=== PATIENT | male | born 1970 | race Caucasian/White ===

== ENCOUNTER 2022-02-01 10:32 | Day surgery (SDC) | payer MEDICARE ==
[2022-02-01] MEDS ORDERED: Marcaine Mpf 0.5% Vial 30 Ml IV ONE (10:33)
[2022-02-01] MEDS: CEFAZOLIN 2 GM-D5W BAG** 2 GM/50 ML ML IV SCH (11:21)
[2022-02-01] MEDS: Lactated Ringers 1,000 ML IV SCH (11:21)
[2022-02-01] MEDS ORDERED: Decadron 4 MG INJ ONE (12:44)
[2022-02-01] MEDS ORDERED: Xylocaine-Mpf 2% 5 Ml Vial ONE (12:44)
[2022-02-01] MEDS ORDERED: Naropin 0.5% 30 ML VIAL ONE (12:44)
[2022-02-01] MEDS ORDERED: SUBLIMAZE 100 MCG/2 ML ONE (12:48)
[2022-02-01] MEDS ORDERED: Versed 2 MG/2 ML Injection ONE (12:48)
[2022-02-01] MEDS ORDERED: XYLOCAINE 1% HCL 20 ML MDV ONE (14:04)
[2022-02-01 15:51] VITALS: BP 137/69; PULSE 49; O2SAT 98
--- NOTE | 2022-02-01 16:19 | XRAY ---
1 minute and 38 seconds fluoroscopy time in surgery for 1st MP joint arthrodesis.
--- NOTE | 2022-02-01 16:27 | XRAY ---
Indication: Right foot 1st MTP arthrodesis. Intraoperative fluoroscopy provided for 1 minutes 38 seconds. 14 digital spot images submitted for interpretation ultimately demonstrates 1st MTP fusion with intact fixation plate and multiple screws. Correlate with intraoperative findings/report.
--- NOTE | 2022-02-02 08:35 | OP ---
SURGERY DATE/TIME: 02/01/2022 0454 PREOPERATIVE DIAGNOSES: 1) First metatarsophalangeal joint osteoarthritis, right. 2) Right foot pain, chronic. POSTOPERATIVE DIAGNOSES: 1) First metatarsophalangeal joint osteoarthritis, right. 2) Right foot pain, chronic. PROCEDURE: Arthrodesis first metatarsophalangeal joint. SURGEON: Steve Marcos DPM. MINE FOREMAN: None. ANESTHESIA: Popliteal block. HEMOSTASIS: Ankle tourniquet set 250 mm of Mercury for 25 minutes. ESTIMATED BLOOD LOSS: Less than 5 cc. MATERIALS: Yany A.L.P.S. first metatarsophalangeal, first metatarsal arthrodesis locking plate with a MAX VPC 4.0 x 40 mm screw as interfragmentary with a combination of locking and nonlocking screws to secure the plate. 4.0 Monocryl and 3-0 Nylon. INJECTABLES: See anesthesia report for details and 20 cc of a 1:1 mixture of 1% lidocaine plain and 0.5% bupivacaine plain injected in a Moore block-type fashion following the procedure. INDICATION FOR SURGERY: Asa is a very pleasant 51-year-old male who presented to my office a couple of months ago with concerns of significant pain to the right first metatarsophalangeal joint. The patient has had this issue chronically and refused to seek out treatment for this issue until it was debilitating. The patient at this time has a significant amount of pain to the first metatarsophalangeal and radiographically there is significant changes osteoarthritic in nature. The patient has very little range of motion and excruciating pain with that range of motion. The patient was offered several conservative options however he refused and wished to proceed with whichever bring him the most relief as quickly as possible. The patient opted for surgical intervention after discussing the conservative options. No guarantees were provided as to the outcome of the surgical intervention. Plenty of time was allowed for the patient to ask questions which were answered to the patient's apparent satisfaction. It is with that we decided to proceed. DESCRIPTION OF PROCEDURE AND FINDINGS: The patient was brought into the postoperative anesthesia care unit first for a popliteal block. After the popliteal block was administered, the patient was then brought into the OR and placed on the OR table in the supine position. At this time the right lower extremity was prepped and draped in the typical sterile fashion. In the process a well-padded ankle tourniquet was applied to the right leg and the tourniquet was set to 250 mm of Mercury. At this time the right lower extremity was lowered onto the surgical field. Attention was directed to the first metatarsophalangeal. At this time a skin marker was utilized to make an incision planning line approximately 6 cm in length over the dorsal aspect of the first metatarsophalangeal. Careful dissection was carried down to the joint capsule retracting the extensor hallucis longus out of the field and being careful not to damage any vital neurovascular structures. At this time the joint capsule was incised and the dorsal aspect of the first metatarsophalangeal was inspected. Significant amounts of osteoarthritis and osteophytes were identified at the dorsal aspect of both the first metatarsal as well as the base of the proximal phalanx. The cartilage was completely denuded and/or indications of chronic tophaceous gout. A sample was taken and sent off for pathologic analysis. At this time a McGlamry introduced and utilized to elevate the sesamoids from the plantar aspect of the first metatarsophalangeal joint. A K-wire was introduced to the central aspect of the first metatarsal and a conical reamer was used to denude the remaining cartilage down to the subchondral plate. Following this the same process was performed on the base of the proximal phalanx utilizing a cup reamer. The area was lavaged of any remaining cartilage. The joint was then prepped utilizing a 2.0 mm drill along with curettes and rongeurs in order to expose the subchondral plate. At this time the joint was opposed and K-wire was introduced from a distal medial to proximal lateral position through the joint. Position was checked and deemed to be adequate. At this time the Yany A.L.P.S. and first metatarsophalangeal plate was introduced dorsally, this was pinned down and position was checked deeming to be adequate. The distal locking screws were introduced first. Following this, the eccentric screw was introduced into the first metatarsal and very closely engaged to the plate however not compressed through the joint. Following this, a 4.0 x 40 VPC MAX screw was introduced from the distal medial site and alternated between the interfragmentary and eccentric screw in order to get maximal compression through the fusion site. At this time the remaining holes were filled with a series of locking screws. Following this copious amounts of sterile saline were utilized to flush the surgical site. After this, the capsular portion of the surgical site was repaired utilizing 4-0 Monocryl in a running continuous stitch and then 4-0 Monocryl was then utilized coapt the subcutaneous skin edges in a simple buried-type fashion and the skin edges were then coapted utilizing a horizontal mattress-type fashion. The tourniquet was let down prior to closure being approximately 25 minutes on the total tourniquet time. Estimated blood loss at that time was approximately 5 cc. The patient was then provided a postoperative block consisting of 20 cc of a 1:1 mixture of 1% lidocaine plain and 0.5% bupivacaine plain injected in a Moore block-type fashion. Following this a dressing consisting of Betadine, Adaptic, 4x4, Kerlix and TANA was applied to the patient's right lower extremity. The patient was returned to the preoperative area with vital signs stable and vascular status intact. The patient handled the procedure as well as the anesthesia without significant complication. Postoperative orders as indicated in the patient's discharge chart.
== END 2022-02-01 16:05 | disposition home or self-care (01) ==
LOC: SDC 10:32
PROVIDERS: ATTEND Podiatrist Foot & Ankle Surgery
DX: M19.071 Primary osteoarthritis, right ankle and foot (principal); M79.671 Pain in right foot; E11.9 Type 2 diabetes mellitus without complications
CPT/HCPCS: 28750; 73630; 76000; 82947; C1713; J0690; J1100; J2250; J2795; J3010

== ENCOUNTER 2023-12-05 13:34 | Emergency (ER) | payer MEDICARE ==
[2023-12-05 13:54] VITALS: BP 130/72; PULSE 74; TEMP 97.7; O2SAT 94
[2023-12-05] MEDS ORDERED: Cipro 500 MG ONE (14:10)
[2023-12-05] MEDS: Cipro 500 MG PO STA (14:11)
[2023-12-05] MEDS ORDERED: XYLOCAINE 1% HCL 20 ML MDV ONE (14:18)
--- NOTE | 2023-12-05 14:18 | ERPHSYRPT ---
- History of Present Illness Time Seen by Provider: 12/05/23 13:50 Source: patient Exam Limitations: no limitations Patient Subjective Stated Complaint: pt dropped a knife on the floor and forgot about it until he kicked it on accident causing a laceration to the bottom of his left big toe Triage Nursing Assessment: Pt brought self to the ER, vitals wnl, rates pain as 1/10, pulses normal, 1 cm laceration to the bottom of his big toe on the left foot, no other injuries, bleeding controlled Physician History: 53-year-old male presents to emergency department for evaluation of a superficial laceration to the left great toe. Patient states he actually dropped a knife on the floor. Patient then kicked the knife the knife went through his shoe into his left great toe. Injury occurred just prior to arrival. Patient presents to our ED due to the bleeding. Upon arrival to our ED no active bleeding. No other injuries reported. Pain described as an ache that is localized. No radiation. Patient denies foreign body sensation and states the knife was completely intact after the incident. Patient voices no other complaints or concerns at this time. Portions of this note were created with voice recognition technology. There may be grammatical, spelling, punctuation or sound alike errors Timing/Duration: today Severity: moderate Modifying Factors: Improves With: nothing Associated Symptoms: denies symptoms Allergies/Adverse Reactions: amoxicillin [From Augmentin] Allergy (Verified 12/05/23 13:53) cefaclor [From Ceclor] Allergy (Verified 12/05/23 13:53) clavulanic acid [From Augmentin] Allergy (Verified 12/05/23 13:53) tramadol Allergy (Verified 12/05/23 13:54) Home Medications: Atorvastatin Calcium [Lipitor] 20 mg PO DAILY 01/05/22 [History] Divalproex Sodium ER 250 mg [Depakote EXTENDED RELEASE 250 MG] 250 mg PO TID 01/05/22 [History] Escitalopram Oxalate [Lexapro] 20 mg PO DAILY 01/05/22 [History] Fluticasone Furoate [Arnuity Ellipta] 50 mcg IH DAILY 01/05/22 [History] Omeprazole 20 mg PO DAILY 01/05/22 [History] Oxycodone HCl/Acetaminophen [Oxycodone-Acetaminophn 7.5-325] 1 each PO DAILY PRN PRN 01/05/22 [History] Hx Tetanus, Diphtheria Vaccination/Date Given: No (about 5-6 years ago) Hx Influenza Vaccination/Date Given: No Hx Pneumococcal Vaccination/Date Given: No Travel Risk - International Travel Have you traveled outside of the country in past 3 weeks: No - Emerging Infectious Disease Are you exhibiting symptoms associated with any current EIDs: No - Review of Systems Constitutional: No Symptoms, No Fever, No Chills Eyes: No Symptoms Ears, Nose, & Throat: No Symptoms Respiratory: No Symptoms, No Cough, No Dyspnea Cardiac: No Symptoms, No Chest Pain, No Edema, No Syncope Abdominal/Gastrointestinal: No Symptoms, No Abdominal Pain, No Nausea, No Vomiting, No Diarrhea Genitourinary Symptoms: No Symptoms, No Dysuria Musculoskeletal: No Symptoms, No Back Pain, No Neck Pain Skin: No Symptoms, No Rash Neurological: No Symptoms, No Dizziness, No Focal Weakness, No Sensory Changes Psychological: No Symptoms Endocrine: No Symptoms Hematologic/Lymphatic: No Symptoms Immunological/Allergic: No Symptoms All Other Systems: Reviewed and Negative - Past Medical History Pertinent Past Medical History: Yes ENT History: Other Cardiac History: Coronary Artery Disease, Hypertension Respiratory History: COPD Musculoskeletal History: Other GI Medical History: GERD Other Medical History: oxygen concentration at night. joint pain. hard of hea ring - Past Surgical History Past Surgical History: Yes Cardiac: Cardiac Catheterization Musculoskeletal: Orthopedic Surgery Other Surgical History: took joint out of the right big toe - Social History Smoking Status: Former smoker Exposure to second hand smoke: Yes Drug Use: none - Social Determinants of Health Will the patient participate in the screening: Yes Do you worry about a steady place to live?: No Do you have any problems with any of the following?: No known problems In the past 12 months,have you had to go without utilities?: No Transportation Issues: No Has anyone in your support network made you feel unsafe?: No Have you or anyone in your house had to go without enough: No - Nursing Vital Signs Nursing Vital Signs: Initial Vital Signs Temperature 97.7 F 12/05/23 13:43 Pulse Rate 74 12/05/23 13:43 Blood Pressure 130/72 12/05/23 13:43 O2 Sat by Pulse Oximetry 94 L 12/05/23 13:43 Pain Scale Pain Intensity 1 - Physical Exam General Appearance: no apparent distress, alert Eye Exam: PERRL/EOMI, eyes nml inspection Ears, Nose, Throat Exam: normal ENT inspection Neck Exam: normal inspection, full range of motion Respiratory Exam: normal breath sounds, airway intact, No respiratory distress Cardiovascular Exam: regular rate/rhythm, normal heart sounds, normal peripheral pulses Gastrointestinal/Abdomen Exam: soft, normal bowel sounds, No tenderness, No mass Back Exam: normal inspection, normal range of motion, No CVA tenderness, No v ertebral tenderness Extremity Exam: normal inspection, normal range of motion, pelvis stable Neurologic Exam: alert, oriented x 3, cooperative, normal mood/affect, sensation nml, No motor deficits Skin Exam: normal color, warm, dry, other (1.5 cm laceration of the plantar aspect of the left great toe.), No rash Lymphatic Exam: No adenopathy SpO2 Interpretation: normal ( The involved digits neurovascular tact distally compartments are soft cap refill less than 2 seconds.) SpO2: 94 O2 Delivery: Room Air Procedures - Laceration/Wound Repair Left Toe Time of Procedure: 14:05 Wound Location: Left (Plantar aspect left great toe) Wound Length (cm): 1.5 Wound's Depth, Shape: superficial Wound Explored: clean Irrigated: Yes Hibiclens Prep: Yes Anesthesia: 1% Lidocaine Volume Anesthetic (ccs): 3 Wound Debrided: No debridement indicated Wound Repaired With: sutures Suture Size/Type: 5-0, ethilon Number of Sutures: 2 Layer Closure?: Yes Sterile Dressing Applied?: Yes Splint Applied?: No Sling Applied?: No Progress: 12/05/23 14:20 Patient tolerated procedure well. No intra or postprocedural complications. Patient neurovascular intact distally post procedure. - Course Nursing assessment & vital signs reviewed: Yes Ordered Tests: Medication Summary Discontinued Medications Generic Name Dose Route Start Last Admin Trade Name Freq PRN Reason Stop Dose Admin Ciprofloxacin 500 mg 12/05/23 14:08 12/05/23 14:11 Ciprofloxacin 500 Mg Tablet PO 12/05/23 14:09 500 mg DAILY STA Administration - Progress Progress: improved Progress Note: 53-year-old male presents to our ED for evaluation of a laceration to his left great toe. The laceration measures 1.5 cm. Involved digits neurovascular tact distally. Laceration repaired using 2 simple interrupted suture. 5-0 Ethilon used to repair the wound. Wound was anesthetized with 3 cc of 1% lidocaine no epinephrine. Patient tolerated procedure well. No intra or postprocedural complications. Patient neurovascular tact distally post procedure. The knife went through patient's shoe. Still patient received a dose of ciprofloxacin in our ED. A prescription for the same was forwarded to patient's pharmacy. Sutures are to be removed in 7 days Complexity problem addressed is moderate acute complicated. No critical care time. Complex of data reviewed and analyzed is none. No specialized testing ordered. Diagnosis made based on history and physical exam. Risk of complication and or risk of morbidity/mortality patient management is moderate. A prescription for ciprofloxacin forwarded to patient's pharmacy. Vital stable. Time spent to discharge patient approximately 15 minutes. Plan of care established for shared decision making. No social determinants of health present to impede follow-up. Portions of this note were created with voice recognition technology. There may be grammatical, spelling, punctuation or sound alike errors. 12/05/23 14:16 Counseled pt/family regarding: diagnosis, need for follow-up - Departure Departure Disposition: Home Clinical Impression: Toe laceration Condition: Stable Critical Care Time: No Referrals: FAVIO MAYS MD [Primary Care Provider] - Follow up/PCP as directed Additional Instructions: Discharge/Care Plan NESTOR CARROLL was seen on 12/05/23 in the Emergency Room. The patient was counseled regarding Diagnosis,Lab results, Imaging studies, need for follow up and when to return to the Emergency Room. Prescriptions given: Discharge Note I have spoken with the patient and/or caregivers. I have explained the patient's condition, diagnosis and treatment plan based on the information available to me at this time. I have answered the patient's and/or caregiver's questions and addressed any concerns. The patient and/or caregivers have as good understanding of the patient's diagnosis, condition and treatment plan as can be expected at this point. The vital signs have been stable. The patient's condition is stable and appropriate for discharge from the emergency department. The patient will pursue further outpatient evaluation with the primary care physician or other designated or consulting physician as outlined in the discharge instructions. The patient and/or caregivers are agreeable to this plan of care and follow-up instructions have been explained in detail. The patient and/or caregivers have received these instruction. The patient/and or caregivers are aware that any significant change in condition or worsening of symptoms should prompt an immediate return to this or the closest emergency department or call 911. Prescriptions: Ciprofloxacin [Cipro 500 MG] 500 mg PO BID #14 tablet
[2023-12-05] MEDS: XYLOCAINE 1% HCL 20 ML MDV IJ ONE (14:19)
== END 2023-12-05 14:26 | disposition home or self-care (01) ==
LOC: ED 13:34
DX: S91.112A Laceration without foreign body of left great toe without damage to nail, initial encounter (principal); W22.8XXA Striking against or struck by other objects, initial encounter; W26.0XXA Contact with knife, initial encounter; I10 Essential (primary) hypertension; Z79.899 Other long term (current) drug therapy
CPT/HCPCS: 12001; 96372; 99283; A9270-GY

== ENCOUNTER 2023-12-27 17:38 | Emergency (ER) | payer MEDICARE ==
--- NOTE | 2023-12-27 17:52 | ERPHSYRPT ---
<WENDI YUEN - Last Filed: 12/27/23 18:43> - History of Present Illness Time Seen by Provider: 12/27/23 17:52 Historian: patient Exam Limitations: no limitations Physician History: This is a 53-year-old white male patient of Dr. Rosales who presents by private vehicle because of intermittent chest pain that radiates into his back over the last several days. In the last few days the pain, at times, was sharp and stabbing and then would let up. It let up over the weekend and then recurred again today. Patient states that there is a low under lying the level of ache with intermittent episodes of anterior chest pain that radiates sharply into his back. These episodes are associated with shortness of breath. Patient has a history of coronary artery disease, COPD, hypertension, seizure disorder and gastroesophageal reflux disease. Timing/Duration: day(s) (Several days), intermittent, worse (In the last 1 to 2 days) Aspirin Treatment Today: 81 mg x 4, provided by ED Allergies/Adverse Reactions: NSAIDS (Non-Steroidal Anti-Inflamma Allergy (Severe, Verified 12/27/23 17:57) amoxicillin [From Augmentin] Allergy (Verified 12/27/23 17:57) cefaclor [From Ceclor] Allergy (Verified 12/27/23 17:57) clavulanic acid [From Augmentin] Allergy (Verified 12/27/23 17:57) tramadol Allergy (Verified 12/27/23 17:57) Home Medications: Atorvastatin Calcium [Lipitor] 20 mg PO DAILY 01/05/22 [History] Divalproex Sodium ER 250 mg [Depakote EXTENDED RELEASE 250 MG] 250 mg PO TID 01/05/22 [History] Fluticasone Furoate [Arnuity Ellipta] 50 mcg IH DAILY 01/05/22 [History] Omeprazole 20 mg PO DAILY 01/05/22 [History] Isosorbide Mononitrate 30 mg [Imdur 30 MG] 30 mg PO DAILY 12/27/23 [History] Metoprolol Succinate 50 mg [Toprol Xl 50 MG] 50 mg PO BID 12/27/23 [History] Morphine Sulfate 1 tab PO Q8HPRN PRN 12/27/23 [History] Naloxegol Oxalate [Movantik] 1 tab PO DAILY 12/27/23 [History] Pregabalin 75 mg PO BID 12/27/23 [History] Hx Tetanus, Diphtheria Vaccination/Date Given: No (about 5-6 years ago) Hx Influenza Vaccination/Date Given: No Hx Pneumococcal Vaccination/Date Given: No Travel Risk - International Travel Have you traveled outside of the country in past 3 weeks: No - Emerging Infectious Disease Are you exhibiting symptoms associated with any current EIDs: No - Review of Systems Constitutional: No Symptoms Eyes: No Symptoms Ears, Nose, & Throat: No Symptoms Respiratory: No Symptoms Cardiac: Chest Pain Abdominal/Gastrointestinal: No Symptoms Genitourinary Symptoms: No Symptoms Musculoskeletal: Back Pain, No Injury Skin: No Symptoms Neurological: No Symptoms Psychological: No Symptoms Endocrine: No Symptoms Hematologic/Lymphatic: No Symptoms Immunological/Allergic: No Symptoms All Other Systems: Reviewed and Negative - Past Medical History Pertinent Past Medical History: Yes ENT History: Other Cardiac History: Coronary Artery Disease, Hypertension Respiratory History: COPD Musculoskeletal History: Other GI Medical History: GERD Other Medical History: oxygen concentration at night. joint pain. hard of hearing - Past Surgical History Past Surgical History: Yes Cardiac: Cardiac Catheterization Musculoskeletal: Orthopedic Surgery Other Surgical History: took joint out of the right big toe - Social History Smoking Status: Former smoker Exposure to second hand smoke: Yes Drug Use: none - Social Determinants of Health Will the patient participate in the screening: Yes Do you worry about a steady place to live?: No In the past 12 months,have you had to go without utilities?: No Transportation Issues: No Has anyone in your support network made you feel unsafe?: No Have you or anyone in your house had to go without enough: No - Physical Exam General Appearance: mild distress, alert, anxiety Eye Exam: PERRL/EOMI, eyes nml inspection Ears, Nose, Throat Exam: normal ENT inspection, moist mucous membranes Neck Exam: normal inspection, non-tender, supple, full range of motion Respiratory Exam: normal breath sounds, chest tenderness, lungs clear, airway intact, No respiratory distress Cardiovascular Exam: regular rate/rhythm, normal heart sounds, normal peripheral pulses Gastrointestinal/Abdomen Exam: soft, normal bowel sounds, No tenderness Rectal Exam: not done Back Exam: normal inspection, normal range of motion, No CVA tenderness, No vertebral tenderness Extremity Exam: normal inspection, normal range of motion, pelvis stable Neurologic Exam: alert, oriented x 3, cooperative, 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 QTc is 364.) - Progress Progress: improved, re-examined Air Movement: good Progress Note: 12/27/23 18:45 My medical decision making and the assignment of moderate complexity to this patient's medical issue today is based on review of the patient's past medical history, review of the patient's medication list, review patient drug allergy list, history present illness and physical findings on examination. The workup in this patient includes placement of intravenous line, twelve-lead EKG, CBC, CMP, troponin level, PT/INR level, D-dimer level, BNP level, magnesium level. If the D-dimer is elevated we will perform a CT scan of the chest with contrast. If it is normal we will perform a plain chest x-ray. Differential diagnosis includes but is not limited to myocardial infarction, COPD exacerbation, CHF exacerbation, pulmonary embolus, pneumonia, electrolyte abnormality, arrhythmia I am signing this patient over to Dr. Villar at shift change. He will follow-up on pending laboratory and radiographic studies and make final disposition. - Departure Departure Disposition: Observation Clinical Impression: Chest pain Condition: Stable Critical Care Time: No Referrals: FAVIO MAYS MD [Primary Care Provider] - Follow up/PCP as directed <PIERO VILLAR - Last Filed: 12/27/23 21:21> - Nursing Vital Signs Nursing Vital Signs: Initial Vital Signs Temperature 98.2 F 12/27/23 17:47 Pulse Rate 61 12/27/23 17:47 Respiratory Rate 16 12/27/23 17:47 Blood Pressure 150/83 12/27/23 17:47 O2 Sat by Pulse Oximetry 98 12/27/23 17:47 Pain Scale Pain Intensity 1 - CT Exams Chest CT Interpretation: Tele-radiologist Report (No comps. Normal PE exam) Ordered Tests: Active Orders 24 hr Category Date Time Status AMA [Release AMA] OM.NOW Care 12/27/23 21:17 Ordered EKG-ER Only STAT Care 12/27/23 17:53 Active IV Insertion STAT Care 12/27/23 17:53 Active Pulse Oximetry (ED) STAT Care 12/27/23 17:53 Active CHEST WITH CONTRAST [CT] Stat Exams 12/27/23 18:38 Taken CBC W DIFF Stat Lab 12/27/23 17:53 Completed CK-Creatinine Phosphokinase Stat Lab 12/27/23 18:00 Completed CMP Stat Lab 12/27/23 18:00 Completed D-DIMER QUANTITATIVE Stat Lab 12/27/23 18:00 Completed PROTIME WITH INR Stat Lab 12/27/23 18:00 Completed TROPONIN Q4H Lab 12/27/23 18:00 Completed TROPONIN Q4H Lab 12/27/23 22:00 Ordered TROPONIN Q4H Lab 12/28/23 02:00 Ordered Medication Summary Discontinued Medications Generic Name Dose Route Start Last Admin Trade Name Freq PRN Reason Stop Dose Admin Aspirin 324 mg 12/27/23 17:53 12/27/23 18:09 Aspirin 81 Mg Tab.Chew PO 12/27/23 17:54 Not Given STAT ONE Aspirin Confirm 12/27/23 18:03 Aspirin 81 Mg Tab.Chew Administered 12/27/23 18:04 Dose 324 mg .ROUTE .STK-MED ONE Sodium Chloride 500 mls @ 500 mls/hr 12/27/23 18:38 12/27/23 18:41 Sodium Chloride 0.9% 500 Ml IV 12/27/23 19:37 500 mls/hr .Q1H ONE Administration Sodium Chloride Confirm 12/27/23 18:40 Sodium Chloride 0.9% 500 Ml Administered 12/27/23 18:41 Dose 500 mls @ ud IV .STK-MED ONE Lab/Rad Data: Laboratory Result Diagrams 12/27/23 17:53 12/27/23 18:00 Laboratory Results 12/27/23 12/27/23 12/27/23 Range/Units 18:00 18:00 18:00 WBC (4.23-9.07) x10^3/uL RBC (4.63-6.08) x10^6/uL Hgb (13.7-17.5) g/dL Hct (40.1-51.0) % MCV (79.0-92.2) fL MCH (25.7-32.2) pg MCHC (32.3-36.5) g/dL RDW (11.6-14.4) % Plt Count (163-337) x10^3/uL MPV (9.4-12.4) fL Gran % (34.0-67.9) % Immature Gran % (Auto) (0.001-0.429) % Nucleat RBC Rel Count (0.00-0.2) % Eos # (Auto) (0.04-0.54) x10^3/uL Immature Gran # (Auto) (0.001-0.031) x10^3u/L Absolute Lymphs (auto) (1.32-3.57) x10^3/uL Absolute Monos (auto) (0.30-0.82) x10^3/uL Absolute Nucleated RBC (0.00-0.012) x10^3u/L Lymphocytes % (21.8-53.1) % Monocytes % (5.3-12.2) % Eosinophils % (0.8-7.0) % Basophils % (0.2-1.2) % Absolute Granulocytes (1.78-5.38) x10^3/uL Basophils # (0.01-0.08) x10^3/uL PT 10.8 (9.4-12.5) SECONDS INR 0.99 (0.8-3.0) D-Dimer 0.63 H* (0.0-0.50) mg/L Sodium (135-145) mmol/L Potassium (3.5-5.1) mmol/L Chloride (98-107) mmol/L Carbon Dioxide (22-30) mmol/L Anion Gap (5-15) MEQ/L BUN (9-20) mg/dL Creatinine (0.66-1.25) mg/dL Estimated GFR ML/MIN Glucose (74-106) mg/dL Calcium (8.4-10.2) mg/dL Total Bilirubin (0.2-1.3) mg/dL AST (17-59) U/L ALT (0-50) U/L Alkaline Phosphatase (38-126) U/L Creatine Kinase (55-170) U/L Troponin I < 0.012 (0.000-0.033) ng/mL Serum Total Protein (6.3-8.2) g/dL Albumin (3.5-5.0) g/dL Valproic Acid 45.3 L (50-100) ug/mL 12/27/23 12/27/23 Range/Units 18:00 17:53 WBC 6.5 (4.23-9.07) x10^3/uL RBC 4.80 (4.63-6.08) x10^6/uL Hgb 13.9 (13.7-17.5) g/dL Hct 42.7 (40.1-51.0) % MCV 89.0 (79.0-92.2) fL MCH 29.0 (25.7-32.2) pg MCHC 32.6 (32.3-36.5) g/dL RDW 13.7 (11.6-14.4) % Plt Count 287 (163-337) x10^3/uL MPV 10.1 (9.4-12.4) fL Gran % 58.3 (34.0-67.9) % Immature Gran % (Auto) 0.3 (0.001-0.429) % Nucleat RBC Rel Count 0.0 (0.00-0.2) % Eos # (Auto) 0.32 (0.04-0.54) x10^3/uL Immature Gran # (Auto) 0.02 (0.001-0.031) x10^3u/L Absolute Lymphs (auto) 1.78 (1.32-3.57) x10^3/uL Absolute Monos (auto) 0.54 (0.30-0.82) x10^3/uL Absolute Nucleated RBC 0.00 (0.00-0.012) x10^3u/L Lymphocytes % 27.4 (21.8-53.1) % Monocytes % 8.3 (5.3-12.2) % Eosinophils % 4.9 (0.8-7.0) % Basophils % 0.8 (0.2-1.2) % Absolute Granulocytes 3.79 (1.78-5.38) x10^3/uL Basophils # 0.05 (0.01-0.08) x10^3/uL PT (9.4-12.5) SECONDS INR (0.8-3.0) D-Dimer (0.0-0.50) mg/L Sodium 145 (135-145) mmol/L Potassium 4.4 (3.5-5.1) mmol/L Chloride 108 H (98-107) mmol/L Carbon Dioxide 27 (22-30) mmol/L Anion Gap 14.2 (5-15) MEQ/L BUN 7 L (9-20) mg/dL Creatinine 0.91 (0.66-1.25) mg/dL Estimated GFR 99.5 ML/MIN Glucose 115 H (74-106) mg/dL Calcium 9.9 (8.4-10.2) mg/dL Total Bilirubin 0.70 (0.2-1.3) mg/dL AST 24 (17-59) U/L ALT 25 (0-50) U/L Alkaline Phosphatase 82 (38-126) U/L Creatine Kinase 56 (55-170) U/L Troponin I (0.000-0.033) ng/mL Serum Total Protein 7.5 (6.3-8.2) g/dL Albumin 4.4 (3.5-5.0) g/dL Valproic Acid (50-100) ug/mL - Progress Progress Note: 53-year-old male with a history of coronary artery disease hypertension COPD presents to the emergency department for evaluation of chest pain radiating to his back. Patient initially evaluated by Dr. Yuen. Patient endorsed to Dr. Villar at approximately [address] Villar advised follow-up on pending CTA chest and make final disposition. CTA chest resulted as negative for PE otherwise nonremarkable. Patient observed in our ED. Patient's oxygen saturation on room air trending downward into the high 80s. Patient advised that he uses oxygen at home to sleep. No active chest pain. EKG sinus rhythm. Initial troponin negative. We planned on performing a second troponin however patient declined. Patient states that he has dogs at home that he has to attend to. Patient has no active chest pain and states that he will follow-up with his primary care doctor in the morning. Patient will be discharged home AMA. Patient is of sound mind. Patient is appropriate to make informed and independent medical decisions. Patient understands that leaving AGAINST MEDICAL ADVICE can result in delayed diagnosis, increased risk of morbidity, mortality, short and long-term disability including . In spite of these risks, patient has decided to leave AGAINST MEDICAL ADVICE. Patient understands that he may return to our ED at any point if he reconsiders. Patient agrees to follow-up with his or her primary care doctor within 48 hours for reevaluation. Patient voices no other complaints or concerns at this time. We will release patient AGAINST MEDICAL ADVICE per their request. Portions of this note were created with voice recognition technology. There may be grammatical, spelling, punctuation or sound alike errors 12/27/23 21:18 - Departure Departure Disposition: AMA
[2023-12-27 17:57] VITALS: TEMP 98.2
[2023-12-27 18:03] LABS: Absolute Neutrophil Ct (ANC) 3.79 x10^3/uL (1.78-5.38); BASOPHIL % 0.8 % (0.2-1.2); Basophil (Absolute #) 0.05 x10^3/uL (0.01-0.08); Eosinophil % 4.9 % (0.8-7.0); Eosinophil (Absolute #) 0.32 x10^3/uL (0.04-0.54); Hematocrit 42.7 % (40.1-51.0); Hemoglobin 13.9 g/dL (13.7-17.5); IMMATURE GRAN # 0.02 x10^3u/L (0.001-0.031); IMMATURE GRAN % 0.3 % (0.001-0.429); Lymphocyte (Absolute #) 1.78 x10^3/uL (1.32-3.57); Lymphocytes % 27.4 % (21.8-53.1); Mean Corpuscular Hgb Concent. 32.6 g/dL (32.3-36.5); Mean Platelet Volume 10.1 fL (9.4-12.4); Monocyte (Absolute #) 0.54 x10^3/uL (0.30-0.82); Monocytes % 8.3 % (5.3-12.2); Neutrophil % 58.3 % (34.0-67.9); Platelet Count 287 x10^3/uL (163-337); Red Cell Distribution Width 13.7 % (11.6-14.4); White Blood Count 6.5 x10^3/uL (4.23-9.07)
[2023-12-27] MEDS ORDERED: BABY ASPIRIN 81 MG CHEW ONE (18:03)
[2023-12-27] MEDS: BABY ASPIRIN 81 MG CHEW PO ONE (18:09)
[2023-12-27 18:18] LABS: ALBUMIN 4.4 g/dL (3.5-5.0); ANION GAP 14.2 MEQ/L (5-15); BILIRUBIN,TOTAL 0.7 mg/dL (0.2-1.3); Calcium 9.9 mg/dL (8.4-10.2); Creatinine 1 0.91 mg/dL (0.66-1.25); EST GLOMERULAR FILTRATION RATE 99.5 ML/MIN; Potassium 4.4 mmol/L (3.5-5.1); Total Protein 7.5 g/dL (6.3-8.2)
[2023-12-27 18:25] LABS: INR 0.99 (0.8-3.0); PROTIME 10.8 SECONDS (9.4-12.5)
[2023-12-27 18:31] LABS: D-DIMER QUANTITATIVE 0.63 mg/L (0.0-0.50)
[2023-12-27] MEDS ORDERED: Sodium Chloride 0.9% 500 ML 500 ML IV ONE (18:40)
[2023-12-27] MEDS: Sodium Chloride 0.9% 500 ML 500 ML IV ONE (18:41)
[2023-12-27 21:08] VITALS: BP 117/65; PULSE 57; RESP 17; O2SAT 88
--- NOTE | 2023-12-28 08:41 | XRAY ---
Indication: Chest/back pain. Elevated d-dimer. Multiple contiguous axial images obtained through the chest using 100 cc Isovue 370 contrast and PE protocol. Comparison: None Good opacification pulmonary arteries to include the lobar and segmental branches. No pulmonary embolus. Heart not enlarged. Aorta minimally arteriosclerotic without aneurysm/dissection. Small right hilar calcified nodes. No pathologic mediastinal/hilar lymphadenopathy. Lungs demonstrates mild bilateral dependent atelectasis and small right middle lobe calcified granuloma. No suspicious pulmonary mass/nodule, infiltrate, or effusion. Bony thorax intact with mild degenerative changes throughout the spine. Limited upper abdomen unremarkable. Impression: 1. Negative pulmonary embolus. No acute cardiopulmonary abnormalities. 2. Chronic findings including degenerative spondylosis and old granulomatous disease.
== END 2023-12-27 21:29 | disposition left against medical advice (07) ==
LOC: ED 17:38
DX: R07.9 Chest pain, unspecified (principal); I10 Essential (primary) hypertension; Z79.891 Long term (current) use of opiate analgesic; Z79.899 Other long term (current) drug therapy
CPT/HCPCS: 36000; 36415; 71260; 80053; 80164; 82550; 84484; 85025; 85379; 85610; 93005; 94760; 99284; A9270-GY

== ENCOUNTER 2024-01-20 10:37 | Observation (INO) | payer MEDICARE ==
--- NOTE | 2024-01-20 11:04 | ERPHSYRPT ---
- History of Present Illness Time Seen by Provider: 01/20/24 10:51 Historian: patient Exam Limitations: no limitations Patient Subjective Stated Complaint: pt here for pain to [facility] since yesterday, some nausea, no fever, Triage Nursing Assessment: pt alert, arrived per wc, to bed wtih a cane, resp easy, skin w/d/p. mucus membranes moist, abd soft but tender, bs heard x4,. Physician History: For the past 16 hours pt has had constant sharp cramps over the periumbilical and suprapubic areas described as 10/10 in severity with nausea; LBM was yesterday & wnl. Pt denies vomiting, chest pain, shortness of air. Pt does not want any pain medications. Allergies/Adverse Reactions: NSAIDS (Non-Steroidal Anti-Inflamma Allergy (Severe, Verified 01/20/24 10:45) amoxicillin [From Augmentin] Allergy (Verified 01/20/24 10:45) cefaclor [From Ceclor] Allergy (Verified 01/20/24 10:45) clavulanic acid [From Augmentin] Allergy (Verified 01/20/24 10:45) tramadol Allergy (Verified 01/20/24 10:45) Home Medications: Atorvastatin Calcium [Lipitor] 20 mg PO DAILY 01/05/22 [History] Divalproex Sodium ER 250 mg [Depakote EXTENDED RELEASE 250 MG] 250 mg PO TID 01/05/22 [History] Fluticasone Furoate [Arnuity Ellipta] 50 mcg IH DAILY 01/05/22 [History] Omeprazole 20 mg PO DAILY 01/05/22 [History] Isosorbide Mononitrate 30 mg [Imdur 30 MG] 30 mg PO DAILY 12/27/23 [History] Metoprolol Succinate 50 mg [Toprol Xl 50 MG] 50 mg PO BID 12/27/23 [History] Morphine Sulfate 1 tab PO Q8HPRN PRN 12/27/23 [History] Naloxegol Oxalate [Movantik] 1 tab PO DAILY 12/27/23 [History] Pregabalin 75 mg PO BID 12/27/23 [History] Hx Tetanus, Diphtheria Vaccination/Date Given: No (about 5-6 years ago) Hx Influenza Vaccination/Date Given: No Hx Pneumococcal Vaccination/Date Given: No Immunizations Up to Date: Yes Travel Risk - International Travel Have you traveled outside of the country in past 3 weeks: No - Emerging Infectious Disease Are you exhibiting symptoms associated with any current EIDs: Yes Symptoms: Abdominal Pain - Review of Systems Constitutional: No Fever Ears, Nose, & Throat: No Ear Pain, No Throat Pain Respiratory: No Dyspnea Cardiac: No Chest Pain Abdominal/Gastrointestinal: Abdominal Pain, Nausea, No Vomiting, No Diarrhea Skin: No Rash Neurological: No Headache - Past Medical History Pertinent Past Medical History: Yes ENT History: Other Cardiac History: Coronary Artery Disease, Hypertension Respiratory History: COPD Musculoskeletal History: Other GI Medical History: GERD Other Medical History: oxygen concentration at night. joint pain. hard of hearing - Past Surgical History Past Surgical History: Yes Cardiac: Cardiac Catheterization Musculoskeletal: Orthopedic Surgery Other Surgical History: took joint out of the right big toe - Social History Smoking Status: Former smoker Exposure to second hand smoke: Yes Drug Use: none - Social Determinants of Health Will the patient participate in the screening: Yes Do you worry about a steady place to live?: No Do you have any problems with any of the following?: No known problems In the past 12 months,have you had to go without utilities?: No Transportation Issues: No Has anyone in your support network made you feel unsafe?: No Have you or anyone in your house had to go without enough: No - Nursing Vital Signs Nursing Vital Signs: Initial Vital Signs Blood Pressure 132/93 01/20/24 10:42 O2 Sat by Pulse Oximetry 96 01/20/24 10:42 Pain Scale Pain Intensity 10 - Physical Exam General Appearance: alert Eye Exam: eyes nml inspection Ears, Nose, Throat Exam: TMs normal, pharynx normal Neck Exam: normal inspection Respiratory Exam: lungs clear, airway intact Cardiovascular Exam: normal heart sounds Gastrointestinal/Abdomen Exam: normal bowel sounds, tenderness (mild periumbilical tenderness) Back Exam: normal inspection Neurologic Exam: alert, cooperative Skin Exam: warm, dry SpO2 Interpretation: normal SpO2: 95 O2 Delivery: Room Air - Course Nursing assessment & vital signs reviewed: Yes - CT Exams Abdomen/Pelvis CT Interpretation: Tele-radiologist Report (Proximal small bowel partial obstruction. See rest of report.) Ordered Tests: Active Orders 24 hr Category Date Time Status IV Insertion STAT Care 01/20/24 11:04 Active ABDOMEN AND PELVIS W/0 CONTRAS [CT] Stat Exams 01/20/24 11:05 Completed AMYLASE Stat Lab 01/20/24 11:13 Completed CBC W DIFF Stat Lab 01/20/24 11:13 Completed CMP Stat Lab 01/20/24 11:13 Completed LIPASE Stat Lab 01/20/24 11:13 Completed MAGNESIUM Stat Lab 01/20/24 11:13 Completed UA W/RFX UR CULTURE Stat Lab 01/20/24 12:32 Completed Medication Summary Discontinued Medications Generic Name Dose Route Start Last Admin Trade Name Erica PRN Reason Stop Dose Admin Ondansetron HCl 4 mg 01/20/24 11:06 01/20/24 11:22 Ondansetron Hcl 4 Mg/2 Ml Vial IV 01/20/24 11:07 4 mg STAT ONE Administration Ondansetron HCl Confirm 01/20/24 11:21 Ondansetron Hcl 4 Mg/2 Ml Vial Administered 01/20/24 11:22 Dose 4 mg .ROUTE .STK-MED ONE Lab/Rad Data: Laboratory Result Diagrams 01/20/24 11:13 01/20/24 11:13 Laboratory Results 01/20/24 01/20/24 01/20/24 Range/Units 12:32 11:13 11:13 WBC 9.6 H (4.23-9.07) x10^3/uL RBC 5.29 (4.63-6.08) x10^6/uL Hgb 15.4 (13.7-17.5) g/dL Hct 46.3 (40.1-51.0) % MCV 87.5 (79.0-92.2) fL MCH 29.1 (25.7-32.2) pg MCHC 33.3 (32.3-36.5) g/dL RDW 13.9 (11.6-14.4) % Plt Count 286 (163-337) x10^3/uL MPV 10.7 (9.4-12.4) fL Gran % 69.7 H (34.0-67.9) % Immature Gran % (Auto) 0.3 (0.001-0.429) % Nucleat RBC Rel Count 0.0 (0.00-0.2) % Eos # (Auto) 0.17 (0.04-0.54) x10^3/uL Immature Gran # (Auto) 0.03 (0.001-0.031) x10^3u/L Absolute Lymphs (auto) 2.00 (1.32-3.57) x10^3/uL Absolute Monos (auto) 0.66 (0.30-0.82) x10^3/uL Absolute Nucleated RBC 0.00 (0.00-0.012) x10^3u/L Lymphocytes % 20.9 L (21.8-53.1) % Monocytes % 6.9 (5.3-12.2) % Eosinophils % 1.8 (0.8-7.0) % Basophils % 0.4 (0.2-1.2) % Absolute Granulocytes 6.67 H (1.78-5.38) x10^3/uL Basophils # 0.04 (0.01-0.08) x10^3/uL Sodium 144 (135-145) mmol/L Potassium 4.2 (3.5-5.1) mmol/L Chloride 106 (98-107) mmol/L Carbon Dioxide 23 (22-30) mmol/L Anion Gap 19.6 H (5-15) MEQ/L BUN 8 L (9-20) mg/dL Creatinine 0.99 (0.66-1.25) mg/dL Estimated GFR 90.0 ML/MIN Glucose 149 H (74-106) mg/dL Calcium 10.2 (8.4-10.2) mg/dL Magnesium 1.9 (1.6-2.3) mg/dL Total Bilirubin 1.10 (0.2-1.3) mg/dL AST 27 (17-59) U/L ALT 34 (0-50) U/L Alkaline Phosphatase 93 (38-126) U/L Serum Total Protein 8.5 H (6.3-8.2) g/dL Albumin 4.9 (3.5-5.0) g/dL Amylase 133 H (30-110) U/L Lipase 84 (23-300) U/L Urine Color Dark Yellow (Yellow) Urine Appearance Clear (Clear) Urine pH 8.0 (4.6-8.0) Ur Specific [facility] >=1.030 A (1.005-1.030) Urine Protein 100 A (Negative) Urine Glucose (UA) Negative (Negative) mg/dL Urine Ketones Trace A (Negative) Urine Blood Negative (Negative) Urine Nitrite Negative (Negative) Urine Bilirubin Negative (Negative) Urine Urobilinogen 1.0 A (0.2) mg/dL Ur Leukocyte Esterase Trace A (Negative) U Hyaline Cast (Auto) NONE SEEN (0-2) /LPF Urine Microscopic RBC 0-2 (0-5) /HPF Urine Microscopic WBC 0-2 (0-5) /HPF Ur Epithelial Cells None Seen (None Seen) /HPF Urine Bacteria None Seen (None Seen) /HPF Urine Culture Reflexed NO (NO) - Progress Progress: unchanged Progress Note: 01/20/24 13:23 Pt states he will take pain medication now. Will see patient in: hospital (observation), other (Spoke with & discussed pt with Dr. Britton - obs) Counseled pt/family regarding: lab results, diagnosis, rad results Medical Desision Making - Diagnostic Testing Diagnostic test were ordered, analyzed, and reviewed by me: Yes Radiological Interpretation: Teleradiologist Report - Departure Departure Disposition: Observation Clinical Impression: Proximal Partial Small Bowel Obstruction, Abdominal pain Condition: Stable Critical Care Time: No Referrals: FAVIO MAYS MD [Primary Care Provider] - Follow up/PCP as directed
[2024-01-20 11:11] LABS: Absolute Neutrophil Ct (ANC) 6.67 x10^3/uL (1.78-5.38); BASOPHIL % 0.4 % (0.2-1.2); Basophil (Absolute #) 0.04 x10^3/uL (0.01-0.08); Eosinophil % 1.8 % (0.8-7.0); Eosinophil (Absolute #) 0.17 x10^3/uL (0.04-0.54); Hematocrit 46.3 % (40.1-51.0); Hemoglobin 15.4 g/dL (13.7-17.5); IMMATURE GRAN # 0.03 x10^3u/L (0.001-0.031); IMMATURE GRAN % 0.3 % (0.001-0.429); Lymphocytes % 20.9 % (21.8-53.1); Mean Cell Volume 87.5 fL (79.0-92.2); Mean Corpuscular Hemoglobin 29.1 pg (25.7-32.2); Mean Corpuscular Hgb Concent. 33.3 g/dL (32.3-36.5); Mean Platelet Volume 10.7 fL (9.4-12.4); Monocyte (Absolute #) 0.66 x10^3/uL (0.30-0.82); Monocytes % 6.9 % (5.3-12.2); Neutrophil % 69.7 % (34.0-67.9); Platelet Count 286 x10^3/uL (163-337); Red Blood Count 5.29 x10^6/uL (4.63-6.08); Red Cell Distribution Width 13.9 % (11.6-14.4); White Blood Count 9.6 x10^3/uL (4.23-9.07)
[2024-01-20 11:21] LABS: ALBUMIN 4.9 g/dL (3.5-5.0); ANION GAP 19.6 MEQ/L (5-15); BILIRUBIN,TOTAL 1.1 mg/dL (0.2-1.3); Calcium 10.2 mg/dL (8.4-10.2); Creatinine 1 0.99 mg/dL (0.66-1.25); MAGNESIUM 1.9 mg/dL (1.6-2.3); Potassium 4.2 mmol/L (3.5-5.1); Total Protein 8.5 g/dL (6.3-8.2)
[2024-01-20] MEDS ORDERED: Zofran 4 MG/2 ML VIAL ONE (11:21)
[2024-01-20] MEDS: Zofran 4 MG/2 ML VIAL IV ONE (11:22)
--- NOTE | 2024-01-20 12:45 | XRAY ---
CLINICAL HISTORY: pain COMPARISON: None. TECHNIQUE: Non-contrast CT of the abdomen and pelvis was performed, with the following protocol: axial images, and reconstructed coronal and sagittal images. One of the following dose reduction techniques was utilized for this exam: Automated exposure control, adjustment of the mA and/or kV according to patient size, and use of iterative reconstruction. FINDINGS: Abdomen: Liver: Normal in size, shape, and density. No focal lesions, cysts, or masses were identified. Gallbladder and Biliary System: The gallbladder is normal in size and shape. No wall thickening, pericholecystic fluid, or gallstones were identified. Pancreas: Pancreatic head, body, and tail are visualized and appear normal in size and density. No pancreatic masses or calcifications were noted. Spleen: Normal in size, shape, and density. with few calcific granulomas, No other splenic lesions or masses were identified. Kidneys and Adrenal Glands: Both kidneys are normal in size, shape, and position. Cortical thickness is within normal limits. No renal calculi or hydronephrosis. Adrenal glands are unremarkable. Abdominal Aorta and Vessels: A few shallow calcified atherosclerosis plaques were noted in the abdominal aorta and major branches. Pelvis: Urinary Bladder: Normal in contour and wall thickness. No intraluminal lesions. Prostate: Normal in size and contour. No masses or abnormal thickening. Seminal Vesicles: Normal appearance without abnormal enlargement or mass. Peritoneal and Retroperitoneal Structures: Mild merly-hepatic free fluid. Bowel: Proximal small bowel dilations were noted centrally in the abdomen with air-fluid levels, wall to wall diameter measures up to 3.4 cm. Transitional point located in the midline lower abdomen at the level L4-L5 with mottling of air given "small bowel feces sign". The distal ileal loops and the colon collapsed. the adjacent mesenteric fat is smudged. A small fat-containing umbilical hernia was noted. The lower thorax: A 6mm calcified granuloma in the right middle lob A few calcified hilar lymph nodes were noted(nonspecific) Bones and Soft Tissues: Pelvic bones and soft tissues are unremarkable. No fractures or abnormal masses were identified. IMPRESSION: 1. Proximal small bowel partial obstruction with transitional point located in the midline lower abdomen at the level L4-L5, the distal ileal loops and the colon collapsed. could be due to adhesion. 2. Mild free fluid was identified within the abdomen or pelvis. 3. A small fat-containing umbilical hernia was noted. 4. Mild merly-hepatic free fluid. [facility] was called on at 11:17 AM [employer]ACH [employer], 01/20/2024, and Ramiro Martinez was informed regarding the presence of significant medical findings. Electronically Signed by: Teto Yuan MD. (01/20/2024 12:39:46 EDT)
[2024-01-20 12:49] LABS: Appearance Clear (Clear); Bacteria None Seen /HPF (None Seen); Bilirubin Negative (Negative); Blood Negative (Negative); Epithelial Cells None Seen /HPF (None Seen); Glucose, Urine Negative (Negative); Hyaline Casts NONE SEEN /LPF (0-2); Ketones Trace (Negative); Leukocyte Esterase Trace (Negative); Nitrite Negative (Negative); Protein,Urine Dip 100 (Negative); RBC 0-2 /HPF (0-5); Specific Gravity >=1.030 (1.005-1.030); WBC 0-2 /HPF (0-5)
[2024-01-20] MEDS ORDERED: Hydromorphone 1 mg/ml Injection ONE (14:00)
[2024-01-20] MEDS: Hydromorphone 1 mg/ml Injection IV ONE (14:02)
[2024-01-20] MEDS ORDERED: Zofran 4 MG/2 ML VIAL IV PRN (14:16)
[2024-01-20] MEDS ORDERED: Hydromorphone 1 mg/ml Injection IV PRN (14:19)
--- NOTE | 2024-01-20 14:25 | PCM.HP ---
History of Present Illness - Chief Complaint Chief Complaint: Partial Small Bowel Obstruction Date: 01/20/24 History of Present Illness: is a 53 year old male with PMHX of chronic pain- follows pain management at [facility], hyperlipidemia, GERD, HTN, neuropathy, and previous hx of bowel obstruction. He was seen in ER today for abd pain and nausea that started last night. He had similar pain with SBO in the past. He is guarding LLQ and RLQ. Pain increases with palpation. Improved in ER with IV pain medication. Partial small bowel obstruction seen on CT abd/ pelvis results. General surgery consulted and NG to be placed. Serial KUB with contrast in NG Q6 per GS. Pt irritable about NG being placed. He denies CP, SOB, V/D, fever. Medications & Allergies Home Medications: Home Medication List Atorvastatin Calcium [Lipitor] 20 mg PO DAILY 01/05/22 [History Confirmed 01/20/24] Divalproex Sodium ER 250 mg [Depakote EXTENDED RELEASE 250 MG] 250 mg PO TID 01/05/22 [History Confirmed 01/20/24] Omeprazole 20 mg PO DAILY 01/05/22 [History Confirmed 01/20/24] Isosorbide Mononitrate 30 mg [Imdur 30 MG] 30 mg PO DAILY 12/27/23 [History Confirmed 01/20/24] Metoprolol Succinate 50 mg [Toprol Xl 50 MG] 50 mg PO BID 12/27/23 [History Confirmed 01/20/24] Naloxegol Oxalate [Movantik] 1 tab PO DAILY 12/27/23 [History Confirmed 01/20/24] Pregabalin 75 mg PO BID 12/27/23 [History Confirmed 01/20/24] Ipratropium/Albuterol Sulfate [Combivent Respimat Common Canister] 2 puff IH QID PRN 01/20/24 [History Confirmed 01/20/24] Oxycodone / APAP 10/325 mg [Oxycodone-Acetaminophen 10-325] 1 tab PO Q8H PRN PRN 01/20/24 [History Confirmed 01/20/24] Allergies/Adverse Reactions: Allergies Allergy/AdvReac Type Severity Reaction Status Date / Time NSAIDS (Non-Steroidal Allergy Severe Verified 01/20/24 10:45 Anti-Inflamma amoxicillin [From Augmentin] Allergy Verified 01/20/24 10:45 cefaclor [From Ceclor] Allergy Verified 01/20/24 10:45 clavulanic acid Allergy Verified 01/20/24 10:45 [From Augmentin] tramadol Allergy Verified 01/20/24 10:45 - Past Medical History Past Medical History: Yes Neurological History: Migraines, Seizures ENT History: Other Cardiac History: Coronary Artery Disease, Hypertension Respiratory History: COPD Musculoskelatal History: Other GI Medical History: GERD Comment: oxygen concentration at night. joint pain. hard of hearing - Past Surgical History Past Surgical History: Yes Cardiac History: Cardiac Catheterization Musculskeletal Surgical Hx: Orthopedic Surgery Other Surgical History: took joint out of the right big toe Significant Family History: no pertinent family hx - Social History Smoking Status: Former smoker Exposure to second hand smoke: Yes Alcohol: Rarely Drug Use: none - Social Determinants of Health Will the patient participate in the screening: Yes Do you worry about a steady place to live?: No Do you have any problems with any of the following?: No known problems In the past 12 months,have you had to go without utilities?: No Have you or anyone in your house had to go without enough: No Transportation Issues: No Has anyone in your support network made you feel unsafe?: No - Physical Exam Vital Signs: Vital Signs - 24 hr Temp Pulse Resp BP BP Pulse Ox 01/20/24 13:56 95 01/20/24 13:30 117/61 01/20/24 13:01 115/56 95 01/20/24 12:31 120/82 87 L 01/20/24 12:01 133/81 92 L 01/20/24 11:39 150/73 94 L 01/20/24 11:38 94 L 01/20/24 11:00 135/98 01/20/24 10:51 97 F 75 18 132/93 95 01/20/24 10:42 132/93 96 General Appearance: no apparent distress, alert Neurologic Exam: alert, oriented x 3, cooperative, normal mood/affect, nml cerebellar function, nml station & gait, sensation nml, No motor deficits Eye Exam: PERRL/EOMI, eyes nml inspection Ears, Nose, Throat Exam: normal ENT inspection, TMs normal, pharynx normal, moist mucous membranes Neck Exam: normal inspection, non-tender, supple, full range of motion Respiratory Exam: normal breath sounds, lungs clear, No respiratory distress Cardiovascular Exam: regular rate/rhythm, normal heart sounds, normal peripheral pulses Gastrointestinal/Abdomen Exam: soft, tenderness, distention, guarding, No mass Back Exam: normal inspection, normal range of motion, No CVA tenderness, No vertebral tenderness Extremity Exam: normal inspection, normal range of motion, pelvis stable Skin Exam: normal color, warm, dry, No rash Lymphatic Exam: No adenopathy Results - Labs Lab/Micro Results: Lab Results-Last 24 Hours 01/20/24 01/20/24 01/20/24 Range/Units 11:13 11:13 12:32 WBC 9.6 H (4.23-9.07) x10^3/uL RBC 5.29 (4.63-6.08) x10^6/uL Hgb 15.4 (13.7-17.5) g/dL Hct 46.3 (40.1-51.0) % MCV 87.5 (79.0-92.2) fL MCH 29.1 (25.7-32.2) pg MCHC 33.3 (32.3-36.5) g/dL RDW 13.9 (11.6-14.4) % Plt Count 286 (163-337) x10^3/uL MPV 10.7 (9.4-12.4) fL Gran % 69.7 H (34.0-67.9) % Immature Gran % (Auto) 0.3 (0.001-0.429) % Nucleat RBC Rel Count 0.0 (0.00-0.2) % Eos # (Auto) 0.17 (0.04-0.54) x10^3/uL Immature Gran # (Auto) 0.03 (0.001-0.031) x10^3u/L Absolute Lymphs (auto) 2.00 (1.32-3.57) x10^3/uL Absolute Monos (auto) 0.66 (0.30-0.82) x10^3/uL Absolute Nucleated RBC 0.00 (0.00-0.012) x10^3u/L Lymphocytes % 20.9 L (21.8-53.1) % Monocytes % 6.9 (5.3-12.2) % Eosinophils % 1.8 (0.8-7.0) % Basophils % 0.4 (0.2-1.2) % Absolute Granulocytes 6.67 H (1.78-5.38) x10^3/uL Basophils # 0.04 (0.01-0.08) x10^3/uL Sodium 144 (135-145) mmol/L Potassium 4.2 (3.5-5.1) mmol/L Chloride 106 (98-107) mmol/L Carbon Dioxide 23 (22-30) mmol/L Anion Gap 19.6 H (5-15) MEQ/L BUN 8 L (9-20) mg/dL Creatinine 0.99 (0.66-1.25) mg/dL Estimated GFR 90.0 ML/MIN Glucose 149 H (74-106) mg/dL Calcium 10.2 (8.4-10.2) mg/dL Magnesium 1.9 (1.6-2.3) mg/dL Total Bilirubin 1.10 (0.2-1.3) mg/dL AST 27 (17-59) U/L ALT 34 (0-50) U/L Alkaline Phosphatase 93 (38-126) U/L Serum Total Protein 8.5 H (6.3-8.2) g/dL Albumin 4.9 (3.5-5.0) g/dL Amylase 133 H (30-110) U/L Lipase 84 (23-300) U/L Urine Color Dark Yellow (Yellow) Urine Appearance Clear (Clear) Urine pH 8.0 (4.6-8.0) Ur Specific Gilbert >=1.030 A (1.005-1.030) Urine Protein 100 A (Negative) Urine Glucose (UA) Negative (Negative) mg/dL Urine Ketones Trace A (Negative) Urine Blood Negative (Negative) Urine Nitrite Negative (Negative) Urine Bilirubin Negative (Negative) Urine Urobilinogen 1.0 A (0.2) mg/dL Ur Leukocyte Esterase Trace A (Negative) U Hyaline Cast (Auto) NONE SEEN (0-2) /LPF Urine Microscopic RBC 0-2 (0-5) /HPF Urine Microscopic WBC 0-2 (0-5) /HPF Ur Epithelial Cells None Seen (None Seen) /HPF Urine Bacteria None Seen (None Seen) /HPF Urine Culture Reflexed NO (NO) - Radiology Impressions Radiology Exams & Impressions: Radiology Procedures Category Date Time Status ABDOMEN AND PELVIS W/0 CONTRAS [CT] Stat Exams 01/20/24 11:05 Completed KUB Stat Exams 01/20/24 20:00 Ordered KUB Stat Exams 01/21/24 04:00 Ordered KUB Stat Exams 01/21/24 12:00 Ordered NG TUBE PLACEMENT (RAD) Routine Exams 01/20/24 14:15 Ordered Assessment/Plan (1) Partial small bowel obstruction Current Visit: Yes Status: Acute Assessment & Plan: - as seen on CT - general surgery consult - NG to placed on LIS - KUB Q6 with contrast in NG x2 per GS order - Zofran PRN - Dilaudid PRN Code(s): K56.600 - PARTIAL INTESTINAL OBSTRUCTION, UNSPECIFIED TO CAUSE (2) Abdominal pain Current Visit: Yes Status: Acute Assessment & Plan: - CT abd/ pevis reviewed - WBC 9.6- 2:2 partial small bowel obstruction - see above plan for SBO Code(s): R10.9 - UNSPECIFIED ABDOMINAL PAIN (3) BMI 35.0-35.9,adult Current Visit: Yes Status: Chronic Assessment & Plan: - advised diet and exercise control Code(s): Z68.35 - BODY MASS INDEX [BMI] 35.0-35.9, ADULT (4) Hyperlipidemia Current Visit: Yes Status: Chronic Assessment & Plan: - hold meds for now as NPO Code(s): E78.5 - HYPERLIPIDEMIA, UNSPECIFIED (5) GERD (gastroesophageal reflux disease) Current Visit: Yes Status: Chronic Assessment & Plan: - Protonix IV Code(s): K21.9 - GASTRO-ESOPHAGEAL REFLUX DISEASE WITHOUT ESOPHAGITIS (6) HTN (hypertension) Current Visit: Yes Status: Chronic Assessment & Plan: - Hold meds for now as NPO - BP stable - Monitor BP Code(s): I10 - ESSENTIAL (PRIMARY) HYPERTENSION (7) Seizure disorder Current Visit: Yes Status: Acute Assessment & Plan: - hx - Depakote oral held - pharmacy to dose IV seizure med Code(s): G40.909 - EPILEPSY, UNSP, NOT INTRACTABLE, WITHOUT STATUS EPILEPTICUS (8) Chronic pain Current Visit: Yes Status: Chronic Assessment & Plan: - Follows pain mgnt at [facility] - states he no longer takes Morphine and now taking percocet and Lyrica - Hold PO meds for now - Dilaudid PRN VTE: SCD's PPI: Protonix Next of Kin: none D/C plan: 1-2 days Code status: Full Code(s): G89.29 - OTHER CHRONIC PAIN
[2024-01-20] MEDS ORDERED: Sodium Chloride 0.9% 1000 ML 1,000 ML IV SCH (14:30)
[2024-01-20] MEDS ORDERED: MEDICATION INTERVENTION MC SCH (14:45)
[2024-01-20] MEDS ORDERED: PROTONIX 40 MG IV IV ONE (16:46)
[2024-01-20] MEDS: PROTONIX 40 MG IV IV SCH (16:55)
[2024-01-20] MEDS: Hydromorphone 1 mg/ml Injection IV PRN (18:06)
[2024-01-20] MEDS: Zofran 4 MG/2 ML VIAL IV PRN (18:06)
[2024-01-20] MEDS: DEPACON IV SCH (18:48)
[2024-01-20] MEDS: SODIUM CHLORIDE 0.9% IV SCH (18:48)
[2024-01-20] MEDS: PHARMACY RENAL DOSING MC ONE (19:15)
[2024-01-20] MEDS: Sodium Chloride 0.9% 1000 ML 1,000 ML IV SCH (23:32)
[2024-01-21 07:01] LABS: Absolute Neutrophil Ct (ANC) 4.19 x10^3/uL (1.78-5.38); BASOPHIL % 0.5 % (0.2-1.2); Basophil (Absolute #) 0.04 x10^3/uL (0.01-0.08); Eosinophil % 4.5 % (0.8-7.0); Eosinophil (Absolute #) 0.36 x10^3/uL (0.04-0.54); Hematocrit 40.7 % (40.1-51.0); Hemoglobin 13.3 g/dL (13.7-17.5); IMMATURE GRAN # 0.01 x10^3u/L (0.001-0.031); IMMATURE GRAN % 0.1 % (0.001-0.429); Lymphocyte (Absolute #) 2.64 x10^3/uL (1.32-3.57); Lymphocytes % 32.9 % (21.8-53.1); Mean Cell Volume 89.6 fL (79.0-92.2); Mean Corpuscular Hemoglobin 29.3 pg (25.7-32.2); Mean Corpuscular Hgb Concent. 32.7 g/dL (32.3-36.5); Mean Platelet Volume 10.8 fL (9.4-12.4); Monocyte (Absolute #) 0.79 x10^3/uL (0.30-0.82); Monocytes % 9.8 % (5.3-12.2); Neutrophil % 52.2 % (34.0-67.9); Platelet Count 210 x10^3/uL (163-337); Red Blood Count 4.54 x10^6/uL (4.63-6.08); Red Cell Distribution Width 14.3 % (11.6-14.4)
[2024-01-21 07:16] LABS: ALBUMIN 3.9 g/dL (3.5-5.0); ANION GAP 13.2 MEQ/L (5-15); BILIRUBIN,TOTAL 1.2 mg/dL (0.2-1.3); Calcium 8.7 mg/dL (8.4-10.2); EST GLOMERULAR FILTRATION RATE 88.9 ML/MIN; Total Protein 6.7 g/dL (6.3-8.2)
--- NOTE | 2024-01-21 09:18 | XRAY ---
CLINICAL HISTORY: abd pain, partial small bowel obstr COMPARISON: 01/20/2024 TECHNIQUE: X-ray of abdomen, AP view. FINDINGS: Prominent air and fecal matter-filled bowel loops, with no signs of obstruction. The stomach, small bowel, and colon gas patterns are all normal and there is no free air around the falciform ligament. No definite radiopaque shadows could be depicted. Scanned osseous structures are unremarkable. IMPRESSION: 1. Prominent air and fecal matter-filled bowel loops, with no signs of obstruction. 2. Unremarkable x-ray for the abdomen with no definite radio-opaque shadows that could be depicted along the anatomical course of kidneys, ureters and urinary bladder. Electronically Signed by: Teto Yuan MD. (01/21/2024 09:14:09 EDT)
[2024-01-21] MEDS: PROTONIX 40 MG IV IV SCH (09:54)
[2024-01-21] MEDS: Miralax Powder 17GM PACKET PO ONE (09:58)
[2024-01-21] MEDS ORDERED: FLUTICASONE FUROATE 50 MCG IH SCH (10:00)
[2024-01-21] MEDS ORDERED: COMBIVENT RESPIMAT COMMON CANISTER IH PRN (11:21)
[2024-01-21] MEDS ORDERED: MEDICATION INTERVENTION MC SCH (12:15)
[2024-01-21] MEDS ORDERED: DUONEB 0.5-3 MG/3 ml Neb IH PRN (12:21)
--- NOTE | 2024-01-21 14:34 | PCM.NOTE ---
Date and Time: 01/21/24 142 Subjective Assessment: 01/20/24 is a 53 year old male with PMHX of chronic pain- follows pain management at [facility], hyperlipidemia, GERD, HTN, neuropathy, and previous hx of bowel obstruction. He was seen in ER today for abd pain and nausea that started last night. He had similar pain with SBO in the past. He is guarding LLQ and RLQ. Pain increases with palpation. Improved in ER with IV pain medication. Partial small bowel obstruction seen on CT abd/ pelvis results. General surgery consulted and NG to be placed. Serial KUB with contrast in NG Q6 per GS. Pt irritable about NG being placed. He denies CP, SOB, V/D, fever. 01/21/24 Pt resting in bed. He is being rather irritable with staff today and wants to eat. He refused NG and had it removed immediately after being placed yesterday. He continues to c/o lower abd. pain . KUB ordered this AM and shows prominanat air and fecal matter. Miralax ordered and clear liquid diet started. Home meds restarted. Per general surgery ok with advancing diet as tolerated. Can d/c when feeling better, likely will d/c tomorrow. He is on baseline O2 of 2lNC during the day and 4lNC at night. He denies CP, SOB, V/D. - Review of Systems Constitutional: No Fever, No Chills Eyes: No Symptoms Ears, Nose, & Throat: No Symptoms Respiratory: No Cough, No Short Of Breath Cardiac: No Chest Pain, No Edema, No Syncope Abdominal/Gastrointestinal: Abdominal Pain, Nausea, No Vomiting Genitourinary Symptoms: No Dysuria Musculoskeletal: No Back Pain, No Neck Pain Skin: No Rash Neurological: No Dizziness, No Focal Weakness, No Sensory Changes Psychological: No Symptoms, Mood Changes Endocrine: No Symptoms Hematologic/Lymphatic: No Symptoms Immunological/Allergic: No Symptoms Objective Exam General Appearance: no apparent distress, alert, obese Neurologic Exam: alert, oriented x 3, normal mood/affect, nml cerebellar fu nction, sensation nml, agitation, No motor deficits Skin Exam: normal color, warm, dry Eye Exam: PERRL, EOMI, eyes nml inspection Ears, Nose, Throat Exam: normal ENT inspection, pharynx normal, moist mucous membranes Neck Exam: normal inspection, non-tender, supple, full range of motion Respiratory Exam: normal breath sounds, lungs clear, No respiratory distress Cardiovascular Exam: regular rate/rhythm, normal heart sounds Gastrointestinal/Abdomen Exam: soft, tenderness (LLQ, RLQ with palpation), distention, No mass Extremity Exam: normal inspection, normal range of motion Back Exam: normal inspection, normal range of motion, No CVA tenderness, No vertebral tenderness Male Genitalia Exam: deferred Rectal Exam: deferred Objective Data Vital Signs: Vital Signs - 24 hr Temp Pulse Resp BP Pulse Ox 01/21/24 12:26 64 16 96 01/21/24 11:50 96.6 F 62 18 107/58 96 01/21/24 08:32 93 L 01/21/24 07:07 98.5 F 67 18 108/51 98 01/21/24 03:24 98.7 F 60 18 95/52 97 01/20/24 23:29 97.5 F 66 16 144/73 97 01/20/24 20:00 97.8 F 61 18 124/62 95 01/20/24 14:31 97.9 F 70 18 122/87 92 L 01/20/24 14:30 97.9 F 70 18 122/87 92 L Pain Assessment - Last Documented Pain Intensity 2 Pain Scale Used 0-10 Pain Scale Intake and Output: Intake & Output 01/19/24 01/20/24 01/21/24 01/22/24 11:59 11:59 11:59 11:59 Intake Total 1742 450 Balance 1742 450 Weight 107.8 kg 105.1 kg Lab Results: Lab Results-Last 24 Hours 01/21/24 01/21/24 01/21/24 Range/Units 06:29 06:29 06:29 WBC 8.0 (4.23-9.07) x10^3/uL RBC 4.54 L (4.63-6.08) x10^6/uL Hgb 13.3 L (13.7-17.5) g/dL Hct 40.7 (40.1-51.0) % MCV 89.6 (79.0-92.2) fL MCH 29.3 (25.7-32.2) pg MCHC 32.7 (32.3-36.5) g/dL RDW 14.3 (11.6-14.4) % Plt Count 210 (163-337) x10^3/uL MPV 10.8 (9.4-12.4) fL Gran % 52.2 (34.0-67.9) % Immature Gran % (Auto) 0.1 (0.001-0.429) % Nucleat RBC Rel Count 0.0 (0.00-0.2) % Eos # (Auto) 0.36 (0.04-0.54) x10^3/uL Immature Gran # (Auto) 0.01 (0.001-0.031) x10^3u/L Absolute Lymphs (auto) 2.64 (1.32-3.57) x10^3/uL Absolute Monos (auto) 0.79 (0.30-0.82) x10^3/uL Absolute Nucleated RBC 0.00 (0.00-0.012) x10^3u/L Lymphocytes % 32.9 (21.8-53.1) % Monocytes % 9.8 (5.3-12.2) % Eosinophils % 4.5 (0.8-7.0) % Basophils % 0.5 (0.2-1.2) % Absolute Granulocytes 4.19 (1.78-5.38) x10^3/uL Basophils # 0.04 (0.01-0.08) x10^3/uL Sodium 142 (135-145) mmol/L Potassium 4.0 (3.5-5.1) mmol/L Chloride 109 H (98-107) mmol/L Carbon Dioxide 24 (22-30) mmol/L Anion Gap 13.2 (5-15) MEQ/L BUN 14 (9-20) mg/dL Creatinine 1.00 (0.66-1.25) mg/dL Estimated GFR 88.9 ML/MIN Glucose 100 (74-106) mg/dL Calcium 8.7 (8.4-10.2) mg/dL Magnesium 1.9 (1.6-2.3) mg/dL Total Bilirubin 1.20 (0.2-1.3) mg/dL AST 19 (17-59) U/L ALT 18 (0-50) U/L Alkaline Phosphatase 73 (38-126) U/L Serum Total Protein 6.7 (6.3-8.2) g/dL Albumin 3.9 (3.5-5.0) g/dL Radiology Exams: Radiology Procedures Category Date Time Status ABDOMEN AND PELVIS W/0 CONTRAS [CT] Stat Exams 01/20/24 11:05 Completed KUB Routine Exams 01/21/24 08:50 Completed Multi-Disciplinary Progress Notes: Multi-Disciplinary Progress Notes 01/21/24 08:32 Respiratory Note by Kiersten Delatorre PT WEARS O2 AT HOME. 4LPM HS AND 2LPM PRN Initialized on 01/21/24 08:32 - END OF NOTE Assessment/Plan (1) Partial small bowel obstruction Current Visit: Yes Status: Acute Code(s): K56.600 - PARTIAL INTESTINAL OBSTRUCTION, UNSPECIFIED TO CAUSE (2) Abdominal pain Current Visit: Yes Status: Acute Code(s): R10.9 - UNSPECIFIED ABDOMINAL PAIN (3) BMI 35.0-35.9,adult Current Visit: Yes Status: Chronic Code(s): Z68.35 - BODY MASS INDEX [BMI] 35.0-35.9, ADULT (4) Hyperlipidemia Current Visit: Yes Status: Chronic Code(s): E78.5 - HYPERLIPIDEMIA, UNSPECIFIED (5) GERD (gastroesophageal reflux disease) Current Visit: Yes Status: Chronic Code(s): K21.9 - GASTRO-ESOPHAGEAL REFLUX DISEASE WITHOUT ESOPHAGITIS (6) HTN (hypertension) Current Visit: Yes Status: Chronic Code(s): I10 - ESSENTIAL (PRIMARY) HYPERTENSION (7) Seizure disorder Current Visit: Yes Status: Acute Code(s): G40.909 - EPILEPSY, UNSP, NOT INTRACTABLE, WITHOUT STATUS EPILEPTICUS (8) Chronic pain Current Visit: Yes Status: Chronic Assessment & Plan: (1) Partial small bowel obstruction Current Visit: Yes Status: Acute Assessment & Plan: - as seen on CT - general surgery consult - NG to placed on LIS - KUB Q6 with contrast in NG x2 per GS order - Zofran PRN - Dilaudid PRN 01/20 - refused NG - advance diet as tolerated per GS - KUB reviewed - miralax - clear liquid diet started - CBC, CMP reviewed. Code(s): K56.600 - PARTIAL INTESTINAL OBSTRUCTION, UNSPECIFIED TO CAUSE (2) Abdominal pain Current Visit: Yes Status: Acute Assessment & Plan: - CT abd/ pevis reviewed - WBC 9.6- 2:2 partial small bowel obstruction - see above plan for SBO Code(s): R10.9 - UNSPECIFIED ABDOMINAL PAIN (3) BMI 35.0-35.9,adult Current Visit: Yes Status: Chronic Assessment & Plan: - advised diet and exercise control Code(s): Z68.35 - BODY MASS INDEX [BMI] 35.0-35.9, ADULT (4) Hyperlipidemia Current Visit: Yes Status: Chronic Assessment & Plan: - hold meds for now as NPO 01/20 - cotinue home meds Code(s): E78.5 - HYPERLIPIDEMIA, UNSPECIFIED (5) GERD (gastroesophageal reflux disease) Current Visit: Yes Status: Chronic Assessment & Plan: - Protonix IV Code(s): K21.9 - GASTRO-ESOPHAGEAL REFLUX DISEASE WITHOUT ESOPHAGITIS (6) HTN (hypertension) Current Visit: Yes Status: Chronic Assessment & Plan: - Hold meds for now as NPO - BP stable - Monitor BP 01/20 - continue oral home meds Code(s): I10 - ESSENTIAL (PRIMARY) HYPERTENSION (7) Seizure disorder Current Visit: Yes Status: Acute Assessment & Plan: - hx - Depakote oral held - pharmacy to dose IV seizure med 01/20 - continue home oral home meds Code(s): G40.909 - EPILEPSY, UNSP, NOT INTRACTABLE, WITHOUT STATUS EPILEPTICUS (8) Chronic pain Current Visit: Yes Status: Chronic Assessment & Plan: - Follows pain mgnt at [facility] - states he no longer takes Morphine and now taking percocet and Lyrica - Hold PO meds for now - Dilaudid PRN 01/20 - stop Dilaudid - continue home meds Code(s): G89.29 - OTHER CHRONIC PAIN Code(s): G89.29 - OTHER CHRONIC PAIN (9) Oxygen dependent Current Visit: Yes Status: Chronic Assessment & Plan: - baseline 2LNC during the day and 4lNC at night - O2 98% today on 2lNC VTE: SCD's PPI: Protonix Next of Kin: none D/C plan: tomorrow Code status: Full Code(s): Z99.81 - DEPENDENCE ON SUPPLEMENTAL OXYGEN
[2024-01-21] MEDS: OXYCODONE-ACETAMINOPHEN 10-325 PO PRN (16:51)
[2024-01-21] MEDS: Depakote EXTENDED RELEASE 250 MG PO SCH (17:12)
[2024-01-21] MEDS: Toprol Xl 50 MG PO SCH (22:06)
[2024-01-21] MEDS: LYRICA 75 MG CAP PO SCH (22:06)
[2024-01-22 05:17] LABS: Hematocrit 38.2 % (40.1-51.0); Hemoglobin 12.4 g/dL (13.7-17.5); Mean Corpuscular Hemoglobin 28.9 pg (25.7-32.2); Mean Corpuscular Hgb Concent. 32.5 g/dL (32.3-36.5); Mean Platelet Volume 10.8 fL (9.4-12.4); Platelet Count 198 x10^3/uL (163-337); Red Blood Count 4.29 x10^6/uL (4.63-6.08); White Blood Count 6.3 x10^3/uL (4.23-9.07)
--- NOTE | 2024-01-22 05:20 | PCM.NOTE ---
Date and Time: 01/22/24 0517 Subjective Assessment: is a 53 year old male with PMHX of chronic pain- follows pain management at [facility], hyperlipidemia, GERD, HTN, neuropathy, and previous hx of bowel obstruction admitted 01/20/[address] scan demonstrates partial SBO. KUB performed 01/21/24 showing prominent air and fecal matter f illed bowel loops with no sign of obstruction. Surgery consulted recommending NG which patient refused. Miralax ordered and clear liquid diet started. Home meds restarted. Per general surgery ok with advancing diet as tolerated. Objective Data Vital Signs: Vital Signs - 24 hr Temp Pulse Resp BP Pulse Ox 01/22/24 04:00 98.8 F 67 18 114/62 97 01/22/24 00:00 97.5 F 58 L 18 111/56 97 01/21/24 20:00 97.5 F 76 18 121/59 94 L 01/21/24 19:25 66 18 95 01/21/24 16:00 96.6 F 75 17 105/55 96 01/21/24 12:26 64 16 96 01/21/24 11:50 96.6 F 62 18 107/58 96 01/21/24 08:32 93 L 01/21/24 07:07 98.5 F 67 18 108/51 98 Pain Assessment - Last Documented Pain Intensity 4 Pain Scale Used 0-10 Pain Scale Intake and Output: Intake & Output 01/19/24 01/20/24 01/21/24 01/22/24 11:59 11:59 11:59 11:59 Intake Total 1742 4173 Balance 1742 4173 Weight 107.8 kg 105.1 kg Lab Results: Lab Results-Last 24 Hours 01/21/24 01/21/24 01/21/24 Range/Units 06:29 06:29 06:29 WBC 8.0 (4.23-9.07) x10^3/uL RBC 4.54 L (4.63-6.08) x10^6/uL Hgb 13.3 L (13.7-17.5) g/dL Hct 40.7 (40.1-51.0) % MCV 89.6 (79.0-92.2) fL MCH 29.3 (25.7-32.2) pg MCHC 32.7 (32.3-36.5) g/dL RDW 14.3 (11.6-14.4) % Plt Count 210 (163-337) x10^3/uL MPV 10.8 (9.4-12.4) fL Gran % 52.2 (34.0-67.9) % Immature Gran % (Auto) 0.1 (0.001-0.429) % Nucleat RBC Rel Count 0.0 (0.00-0.2) % Eos # (Auto) 0.36 (0.04-0.54) x10^3/uL Immature Gran # (Auto) 0.01 (0.001-0.031) x10^3u/L Absolute Lymphs (auto) 2.64 (1.32-3.57) x10^3/uL Absolute Monos (auto) 0.79 (0.30-0.82) x10^3/uL Absolute Nucleated RBC 0.00 (0.00-0.012) x10^3u/L Lymphocytes % 32.9 (21.8-53.1) % Monocytes % 9.8 (5.3-12.2) % Eosinophils % 4.5 (0.8-7.0) % Basophils % 0.5 (0.2-1.2) % Absolute Granulocytes 4.19 (1.78-5.38) x10^3/uL Basophils # 0.04 (0.01-0.08) x10^3/uL Sodium 142 (135-145) mmol/L Potassium 4.0 (3.5-5.1) mmol/L Chloride 109 H (98-107) mmol/L Carbon Dioxide 24 (22-30) mmol/L Anion Gap 13.2 (5-15) MEQ/L BUN 14 (9-20) mg/dL Creatinine 1.00 (0.66-1.25) mg/dL Estimated GFR 88.9 ML/MIN Glucose 100 (74-106) mg/dL Calcium 8.7 (8.4-10.2) mg/dL Magnesium 1.9 (1.6-2.3) mg/dL Total Bilirubin 1.20 (0.2-1.3) mg/dL AST 19 (17-59) U/L ALT 18 (0-50) U/L Alkaline Phosphatase 73 (38-126) U/L Serum Total Protein 6.7 (6.3-8.2) g/dL Albumin 3.9 (3.5-5.0) g/dL Radiology Exams: Radiology Procedures Category Date Time Status ABDOMEN AND PELVIS W/0 CONTRAS [CT] Stat Exams 01/20/24 11:05 Completed KUB Routine Exams 01/21/24 08:50 Completed Multi-Disciplinary Progress Notes: Multi-Disciplinary Progress Notes 01/21/24 08:32 Respiratory Note by Kiersten Delatorre PT WEARS O2 AT HOME. 4LPM HS AND 2LPM PRN Initialized on 01/21/24 08:32 - END OF NOTE Assessment/Plan (1) Partial small bowel obstruction Current Visit: Yes Status: Acute Assessment & Plan: - as seen on CT - general surgery consult -KUB reviewed from 01/21/24 showing prominent air and fecal matter filled bowel loops with no sign of obstruction - Patient refused NG - Zofran PRN - advance diet as tolerated per GS - MiraLAX - clear liquid diet started Code(s): K56.600 - PARTIAL INTESTINAL OBSTRUCTION, UNSPECIFIED TO CAUSE (2) Abdominal pain Current Visit: Yes Status: Acute Assessment & Plan: - CT abd/ pelvis reviewed demonstrates partial SBO - see above plan for SBO Code(s): R10.9 - UNSPECIFIED ABDOMINAL PAIN (3) BMI 35.0-35.9,adult Current Visit: Yes Status: Chronic Assessment & Plan: - advised diet and exercise control Code(s): Z68.35 - BODY MASS INDEX [BMI] 35.0-35.9, ADULT (4) Hyperlipidemia Current Visit: Yes Status: Chronic Assessment & Plan: - continue home meds Code(s): E78.5 - HYPERLIPIDEMIA, UNSPECIFIED (5) Seizure disorder Current Visit: Yes Status: Acute Assessment & Plan: - continue home oral home meds Code(s): G40.909 - EPILEPSY, UNSP, NOT INTRACTABLE, WITHOUT STATUS EPILEPTICUS (6) Chronic pain Current Visit: Yes Status: Chronic Assessment & Plan: - Follows pain mgnt at [facility] - states he no longer takes Morphine and now taking Percocet and Lyrica - stop Dilaudid - continue home meds Code(s): G89.29 - OTHER CHRONIC PAIN (7) GERD (gastroesophageal reflux disease) Current Visit: Yes Status: Chronic Assessment & Plan: - Protonix IV Code(s): K21.9 - GASTRO-ESOPHAGEAL REFLUX DISEASE WITHOUT ESOPHAGITIS (8) HTN (hypertension) Current Visit: Yes Status: Chronic Assessment & Plan: - continue oral home meds Code(s): I10 - ESSENTIAL (PRIMARY) HYPERTENSION (9) Oxygen dependent Current Visit: Yes Status: Chronic Assessment & Plan: - baseline 2LNC during the day and 4lNC at night VTE: SCD's PPI: Protonix Next of Kin: none D/C plan: Code status: Full Code(s): Z99.81 - DEPENDENCE ON SUPPLEMENTAL OXYGEN
[2024-01-22 05:53] LABS: ALBUMIN 3.5 g/dL (3.5-5.0); ANION GAP 10.4 MEQ/L (5-15); BILIRUBIN,TOTAL 0.8 mg/dL (0.2-1.3); Calcium 8.5 mg/dL (8.4-10.2); Creatinine 1 0.8 mg/dL (0.66-1.25); EST GLOMERULAR FILTRATION RATE 104.5 ML/MIN; Potassium 3.7 mmol/L (3.5-5.1); Total Protein 6.2 g/dL (6.3-8.2)
[2024-01-22] MEDS: Protonix 40MG Tablet PO SCH (09:27)
[2024-01-22] MEDS: Imdur 30 MG PO SCH (09:27)
[2024-01-22] MEDS: ZOCOR 20MG PO SCH (09:28)
[2024-01-22] MEDS ORDERED: NALOXEGOL OXALATE 25 MG PO SCH (10:00)
[2024-01-22] MEDS ORDERED: NON-FORMULARY ITEM (Omeprazole [Omeprazole] 20 MG Tablet.Dr) PO SCH (10:00)
[2024-01-22] MEDS ORDERED: NON-FORMULARY ITEM (Atorvastatin Calcium [Lipitor] 20 MG Tablet) PO SCH (10:00)
[2024-01-22 10:26] VITALS: O2SAT 97
--- NOTE | 2024-01-22 12:06 | PCM.DS ---
Discharge Summary Date of Admission: 01/20/24 14:05 Date of Discharge: 01/22/24 Admitting Physician: DEMETRIS ABARCA MD Primary Care Provider: FAVIO MAYS MD Allergies Allergies NSAIDS (Non-Steroidal Anti-Inflamma Allergy (Severe, Verified 01/20/24 10:45) amoxicillin [From Augmentin] Allergy (Verified 01/20/24 10:45) cefaclor [From Ceclor] Allergy (Verified 01/20/24 10:45) clavulanic acid [From Augmentin] Allergy (Verified 01/20/24 10:45) tramadol Allergy (Verified 01/20/24 10:45) Hospital Summary - Hospital Course Hospital Course: is a 53 year old male with PMHX of chronic pain- follows pain management at [facility], hyperlipidemia, GERD, HTN, neuropathy, and previous hx of bowel obstruction admitted 01/20/[address] scan demonstrates partial SBO. KUB performed 01/21/24 showing prominent air and fecal matter filled bowel loops with no sign of obstruction. Surgery consulted recommending NG which patient refused. Miralax ordered and clear liquid diet started. Home meds restarted. Per general surgery ok with advancing diet as tolerated and discharge when tolerating diet. No overnight events. Patient states abdominal pain is minimal 2/10 on numerical pain scale. He is tolerating a diet with no pain or N/V and passing flatus. Labs and vitals stable. He is at his baseline oxygen. Will discharge home with zofran. Discharge Note New Diagnosis: Partial SBO New Medications: Zofran Follow Up: PCP/surg Latest Assessment & Plan (1) Partial small bowel obstruction Current Visit: Yes Status: Acute Assessment & Plan: - as seen on CT - general surgery consult -KUB reviewed from 01/21/24 showing prominent air and fecal matter filled bowel loops with no sign of obstruction - Patient refused NG - Zofran PRN - advance diet as tolerated per GS - MiraLAX - tolerating diet, +flatus -mild abdominal pain Code(s): K56.600 - PARTIAL INTESTINAL OBSTRUCTION, UNSPECIFIED TO CAUSE (2) Abdominal pain Current Visit: Yes Status: Acute Assessment & Plan: - CT abd/ pelvis reviewed demonstrates partial SBO - see above plan for SBO Code(s): R10.9 - UNSPECIFIED ABDOMINAL PAIN (3) BMI 35.0-35.9,adult Current Visit: Yes Status: Chronic Assessment & Plan: - advised diet and exercise control Code(s): Z68.35 - BODY MASS INDEX [BMI] 35.0-35.9, ADULT (4) Hyperlipidemia Current Visit: Yes Status: Chronic Assessment & Plan: - continue home meds Code(s): E78.5 - HYPERLIPIDEMIA, UNSPECIFIED (5) Seizure disorder Current Visit: Yes Status: Acute Assessment & Plan: - continue home oral home meds Code(s): G40.909 - EPILEPSY, UNSP, NOT INTRACTABLE, WITHOUT STATUS EPILEPTICUS (6) Chronic pain Current Visit: Yes Status: Chronic Assessment & Plan: - Follows pain mgnt at [facility] - states he no longer takes Morphine and now taking Percocet and Lyrica - stop Dilaudid - continue home meds Code(s): G89.29 - OTHER CHRONIC PAIN (7) GERD (gastroesophageal reflux disease) Current Visit: Yes Status: Chronic Assessment & Plan: - Protonix IV Code(s): K21.9 - GASTRO-ESOPHAGEAL REFLUX DISEASE WITHOUT ESOPHAGITIS (8) HTN (hypertension) Current Visit: Yes Status: Chronic Assessment & Plan: - continue oral home meds Code(s): I10 - ESSENTIAL (PRIMARY) HYPERTENSION (9) Oxygen dependent Current Visit: Yes Status: Chronic Assessment & Plan: - baseline 2LNC during the day and 4lNC at night I spent 37 minutes [id number] with the patient on the day of discharge performing discharge exam, discussing hospital stay and discharge instructions with patient and caregivers, preparation of discharge records, prescriptions & referral forms and addressing any questions/concerns the patient had as documented above. - Vitals & Intake/Output Vital Signs: Vital Signs Temperature 97.6 F 01/22/24 07:50 Pulse Rate 55 L 01/22/24 10:24 Respiratory Rate 14 01/22/24 10:24 Blood Pressure 128/79 01/22/24 07:50 O2 Sat by Pulse Oximetry 97 01/22/24 10:24 Intake & Output: Intake & Output 01/20/24 01/21/24 01/22/24 01/23/24 11:59 11:59 11:59 11:59 Intake Total 1742 4293 Balance 1742 4293 Weight 107.8 kg 105.1 kg - Lab Result Diagrams: 01/22/24 05:11 01/22/24 05:11 Lab Results-Last 24 Hrs: Lab Results-Last 24 Hours 01/22/24 01/22/24 Range/Units 05:11 05:11 WBC 6.3 (4.23-9.07) x10^3/uL RBC 4.29 L (4.63-6.08) x10^6/uL Hgb 12.4 L (13.7-17.5) g/dL Hct 38.2 L (40.1-51.0) % MCV 89.0 (79.0-92.2) fL MCH 28.9 (25.7-32.2) pg MCHC 32.5 (32.3-36.5) g/dL RDW 14.0 (11.6-14.4) % Plt Count 198 (163-337) x10^3/uL MPV 10.8 (9.4-12.4) fL Sodium 143 (135-145) mmol/L Potassium 3.7 (3.5-5.1) mmol/L Chloride 109 H (98-107) mmol/L Carbon Dioxide 28 (22-30) mmol/L Anion Gap 10.4 (5-15) MEQ/L BUN 5 L (9-20) mg/dL Creatinine 0.80 (0.66-1.25) mg/dL Estimated GFR 104.5 ML/MIN Glucose 96 (74-106) mg/dL Calcium 8.5 (8.4-10.2) mg/dL Total Bilirubin 0.80 (0.2-1.3) mg/dL AST 17 (17-59) U/L ALT 15 (0-50) U/L Alkaline Phosphatase 67 (38-126) U/L Serum Total Protein 6.2 L (6.3-8.2) g/dL Albumin 3.5 (3.5-5.0) g/dL - Radiology Exams Ordered Rad Exams-Entire Visit: Radiology Procedures Category Date Time Status ABDOMEN AND PELVIS W/0 CONTRAS [CT] Stat Exams 01/20/24 11:05 Completed KUB Routine Exams 01/21/24 08:50 Completed - Procedures and Test Procedures and Tests throughout Hospitalization: Therapy Orders & Screens 01/21/24 07:56 RT Miscellaneous Order ROUTINE Comment: Physician Instructions: Reason For Exam: wean O2 - does note wear at home Diagnosis: Partial Small Bowel Obstruction 01/21/24 08:31 Oxygen Nasal Cannula 4 lpm Comment: Diagnosis: Partial Small Bowel Obstruction 01/21/24 12:22 Respiratory Therapy Assessment DAILY Comment: Diagnosis: Partial Small Bowel Obstruction Discharge Exam General Appearance: no apparent distress Neurologic Exam: alert, oriented x 3, cooperative Eye Exam: PERRL Ears, Nose, Throat Exam: normal ENT inspection Neck Exam: normal inspection Respiratory Exam: normal breath sounds, lungs clear Cardiovascular Exam: regular rate/rhythm, normal heart sounds Gastrointestinal/Abdomen Exam: soft, normal bowel sounds Male Genitalia Exam: deferred Rectal Exam: deferred Back Exam: normal inspection Extremity Exam: normal inspection Skin Exam: normal color Final Diagnosis/Problem List - Final Discharge Diagnosis/Problem (1) Partial small bowel obstruction Current Visit: Yes Status: Resolved Code(s): K56.600 - PARTIAL INTESTINAL OBSTRUCTION, UNSPECIFIED TO CAUSE (2) Abdominal pain Current Visit: Yes Status: Resolved Code(s): R10.9 - UNSPECIFIED ABDOMINAL PAIN (3) BMI 35.0-35.9,adult Current Visit: Yes Status: Chronic Code(s): Z68.35 - BODY MASS INDEX [BMI] 35.0-35.9, ADULT (4) Hyperlipidemia Current Visit: Yes Status: Chronic Code(s): E78.5 - HYPERLIPIDEMIA, UNSPECIFIED (5) Seizure disorder Current Visit: Yes Status: Chronic Code(s): G40.909 - EPILEPSY, UNSP, NOT INTRACTABLE, WITHOUT STATUS EPILEPTICUS (6) Chronic pain Current Visit: Yes Status: Chronic Code(s): G89.29 - OTHER CHRONIC PAIN (7) GERD (gastroesophageal reflux disease) Current Visit: Yes Status: Chronic Code(s): K21.9 - GASTRO-ESOPHAGEAL REFLUX DISEASE WITHOUT ESOPHAGITIS (8) HTN (hypertension) Current Visit: Yes Status: Chronic Code(s): I10 - ESSENTIAL (PRIMARY) HYPERTENSION (9) Oxygen dependent Current Visit: Yes Status: Chronic Code(s): Z99.81 - DEPENDENCE ON SUPPLEMENTAL OXYGEN - Discharge Disposition: Home, Self-Care Condition: Stable Prescriptions: New Ondansetron ODT 4 MG [Zofran Odt 4 mg] 4 mg PO Q6HPRN PRN 30 Days #30 tab PRN Reason: Nausea Continue Atorvastatin Calcium [Lipitor] 20 mg PO DAILY Omeprazole 20 mg PO DAILY Pregabalin 75 mg PO BID Isosorbide Mononitrate 30 mg [Imdur 30 MG] 30 mg PO DAILY Metoprolol Succinate 50 mg [Toprol Xl 50 MG] 50 mg PO BID Naloxegol Oxalate [Movantik] 1 tab PO DAILY Ipratropium/Albuterol Sulfate [Combivent Respimat Common Canister] 2 puff IH QID PRN PRN Reason: Shortness Of Breath Oxycodone / APAP 10/325 mg [Oxycodone-Acetaminophen 10-325] 1 tab PO Q8H PRN PRN PRN Reason: Pain Divalproex Sodium [Depakote] 250 mg PO TID Follow up with: FAVIO MAYS MD [Primary Care Provider] -
[2024-01-22 12:12] VITALS: BP 99/56; PULSE 63; RESP 18; TEMP 98.2
== END 2024-01-22 13:30 | disposition home or self-care (01) ==
LOC: ED 10:37 → MED SURG 14:05
PROVIDERS: ADMIT Internal Medicine; ATTEND Internal Medicine
DX: K56.600 Partial intestinal obstruction, unspecified as to cause (principal); R10.9 Unspecified abdominal pain; Z68.35 Body mass index [BMI] 35.0-35.9, adult; E78.5 Hyperlipidemia, unspecified; G40.909 Epilepsy, unspecified, not intractable, without status epilepticus; G89.29 Other chronic pain; K21.9 Gastro-esophageal reflux disease without esophagitis; I10 Essential (primary) hypertension; I25.10 Atherosclerotic heart disease of native coronary artery without angina pectoris; Z99.81 Dependence on supplemental oxygen; Z79.899 Other long term (current) drug therapy
CPT/HCPCS: 36000; 36415; 74018; 74176; 80053; 81001; 82150; 83690; 83735; 85025; 85027; 93268; 94760; 96374; 96375; 99285; J1170; J2405; Q3014; A9270-GY; G0378